=== PATIENT | female | born 1970 | race Caucasian/White ===

== ENCOUNTER 2019-12-19 11:43 | Emergency (ER) | payer SELFPAY ==
[~2019-12-19] VITALS: Ht 154.9 cm; Wt 67.4 kg
[2019-12-19 11:43] VITALS: BP 129/63
[2019-12-19] MEDS ORDERED: KETOROLAC 60 MG/2 ML VIAL. IM ONE (12:15)
[2019-12-19] MEDS ORDERED: ORPHENADRINE CITRATE 60 MG/2 ML VIAL. IM ONE (12:15)
[2019-12-19] MEDS ORDERED: METH-38 PO (12:16)
[2019-12-19] MEDS ORDERED: HYDR-3165 PO (12:16)
--- NOTE | 2019-12-19 12:16 | PHYS DOC ---
Past History Past Medical History: Asthma, COPD, Hypertension Past Surgical History: , Other Additional Past Surgical Histo: BACK SURG Alcohol Use: None General Adult EDM: Chief Complaint: ABDOMINAL PAIN HPI: HPI: Patient is a 49-year-old female with chronic back pain who has had what sounds like a discectomy for herniated disc in the past. This was due to a right sided lumbar radiculopathy secondary to intractable pain. Patient has had problems with sciatica on the left from time to time since then. Today she complains of pain that is intensified over the last couple of days radiating into her left buttock and down into her thigh. She denies any new trauma to the area. She states she is having a hard time getting comfortable. She denies any bowel or bladder dysfunction. [] Review of Systems: Review of Systems: Constitutional: Denies fever or chills Eyes: Denies change in visual acuity HENT: Denies nasal congestion or sore throat Respiratory: Denies cough or shortness of breath Cardiovascular: Denies chest pain or edema GI: Denies abdominal pain, nausea, vomiting, bloody stools or diarrhea : Denies dysuria Musculoskeletal: Per HPI Integument: Denies rash Neurologic: Nerve pain left buttock and leg Endocrine: Denies polyuria or polydipsia Lymphatic: Denies swollen glands Psychiatric: Denies depression or anxiety Heart Score: Risk Factors: Risk Factors: DM, Current or recent (<one month) smoker, HTN, HLP, family history of CAD, obesity. Risk Scores: Score 0 - 3: 2.5% MACE over next 6 weeks - Discharge Home Score 4 - 6: 20.3% MACE over next 6 weeks - Admit for Clinical Observation Score 7 - 10: 72.7% MACE over next 6 weeks - Early Invasive Strategies Allergies: Allergies: Allergies Coded Allergies Type Severity Reaction Last Updated Verified codeine Allergy Unknown PILLS GIVE HER HIVES 12/19/19 Yes Physical Exam: PE: Constitutional: Well developed, well nourished, mild distress, non-toxic appearance. [] HENT: Normocephalic, atraumatic, bilateral external ears normal, oropharynx moist, no oral exudates, nose normal. [] Eyes: PERRLA, EOMI, conjunctiva normal, no discharge. [] Neck: Normal range of motion, no tenderness, supple, no stridor. [] Cardiovascular:Heart rate regular rhythm, no murmur [] Lungs & Thorax: Bilateral breath sounds clear to auscultation [] Abdomen: Bowel sounds normal, soft, no tenderness, no masses, no pulsatile masses. [] Skin: Warm, dry, no erythema, no rash. [] Back: Positive straight leg raise on the left at about 25 degrees 2+ patellar reflex, pain over the left piriformis. [] Extremities: No tenderness, no cyanosis, no clubbing, ROM intact, no edema. [] Neurologic: Alert and oriented X 3, normal motor function, normal sensory function, no focal deficits noted. [] Psychologic: Anxious [] Current Patient Data: Vital Signs: Vital Signs Date Time Temp Pulse Resp B/P (MAP) Pulse Ox O2 Delivery O2 Flow Rate FiO2 12/19/19 11:43 98.0 88 18 129/63 (85) 98 Room Air EKG: EKG: [] Radiology/Procedures: Radiology/Procedures: [] Course & Med Decision Making: Course & Med Decision Making Pertinent Labs and Imaging studies reviewed. (See chart for details) [] Dragon Disclaimer: Dragon Disclaimer: This electronic medical record was generated, in whole or in part, using a voice recognition dictation system. Departure Departure: Impression: Primary Impression: Left sided sciatica Disposition: 01 HOME/RESIDENCE PRIOR TO ADM Condition: STABLE Referrals: PCP,[facility] (PCP) Patient Instructions: Piriformis Syndrome, Piriformis Syndrome with Rehab- [facility], Sciatica, Sciatica with [facility] Scripts Methocarbamol (ROBAXIN-750) 750 Mg Tablet 1 TAB PO BID for back pain for 30 Days, #60 TAB 0 Refills Prov: FREDDIE MARCANO DO 12/19/19 Hydrocodone Bit/Acetaminophen (NORCO 5-325 TABLET) 1 Each Tablet 1-2 TAB PO Q4-6HRS for PAIN, #20 TAB Prov: FREDDIE MARCANO DO 12/19/19 FREDDIE MARCANO DO December 19, 2019 12:16
== END 2019-12-19 12:27 | disposition home or self-care (01) ==
LOC: ER 11:43
DX: M54.42 Lumbago with sciatica, left side (principal); G89.29 Other chronic pain; J44.9 Chronic obstructive pulmonary disease, unspecified; I10 Essential (primary) hypertension; Z98.890 Other specified postprocedural states; Z88.5 Allergy status to narcotic agent
CPT/HCPCS: 96372; 99284; J1885; J2360